=== PATIENT | male | born 1955 | race Caucasian/White ===

== ENCOUNTER 2019-09-27 14:04 | Inpatient (IN) ==
[2019-09-27] MEDS ORDERED: ONDANSETRON INJ 2 MG/ML 2 ML VIAL IV STA ×2 (14:16→16:15)
[2019-09-27] MEDS ORDERED: SODIUM CHLORIDE 0.9% 1000ML 1,000 ML IV SCH (14:30)
[2019-09-27 14:48] LABS: Basophils # (auto) 0.03 K/uL (0-0.2); Basophils % (auto) 0.3 %; Eosinophils # (auto) 0.06 K/uL (0-0.5); Eosinophils % (auto) 0.7 %; Hematocrit (blood only) 41.9 % (42-52); Hemoglobin 15.2 g/dL (14.0-18.0); Immature Granulocytes # (auto) 0.03 K/uL (0.00-0.02); Immature Granulocytes % (auto) 0.3 %; Lymphocytes # (auto) 1.32 K/uL (1.2-3.4); Lymphocytes % (auto) 14.7 %; Mean Corpuscular Hemoglobin 31.1 pg (25-34); Mean Corpuscular Hgb Conc 36.3 g/dL (32-36); Mean Corpuscular Volume 85.9 fL (80-100); Mean Platelet Volume 9.1 fL (7.4-10.4); Monocytes % (auto) 8.9 %; Neutrophils # (auto) 6.75 K/uL (1.4-6.5); Neutrophils % (auto) 75.1 %; Platelet Count 159 K/uL (130-400); RDW Coefficient of Variation 12.8 % (11.5-14.5); RDW Standard Deviation 40.1 fL (36.4-46.3); Red Blood Count 4.88 M/uL (4.7-6.1); White Blood Count 8.99 K/uL (4.8-10.8)
[2019-09-27 14:57] LABS: Appearance Urine Clear (Clear); Bilirubin Urine Negative (Negative); Blood Urine Negative (Negative); Color Urine Yellow; Glucose Urine UA 1+ (Negative); Ketones Urine 1+ (Negative); Leukocyte Esterase Urine Negative (Negative); Nitrite Urine Negative (Negative); Protein Urine Negative (Negative); Specific Gravity Urine 1.011 (1.000-1.030); Urobilinogen Urine Negative (Negative)
[2019-09-27 14:57] LABS: INR 1.1 (0.9-1.1); Prothrombin Time 11.4 Seconds (9.0-12.0)
[2019-09-27 15:03] LABS: Alanine Aminotransferase 25 U/L (12-78); Albumin Level 3.1 gm/dl (3.4-5.0); Aspartate Aminotransferase 12 U/L (15-37); BUN Creatinine Ratio 18.3 (10-20); Blood Urea Nitrogen 19 mg/dl (7-18); Calcium 9.1 mg/dl (8.5-10.1); Carbon Dioxide 25 mmol/L (21-32); Chloride 104 mmol/L (98-107); Creatinine Clr Calc Pharmacy 88.5 ml/min; Est GFR (African American) 91.5; Glucose 226 mg/dl (70-99); Lipase 97 U/L (73-393); Potassium 4.2 mmol/L (3.5-5.1); Sodium 136 mmol/L (136-145)
[2019-09-27 15:08] LABS: Albumin Globulin Ratio 0.9 (0.9-2); Alkaline Phosphatase 72 U/L (45-117); Bilirubin,Total 0.5 mg/dl (0.2-1); Globulin 3.5 gm/dl (2.5-4.0); Total Protein 6.6 gm/dl (6.4-8.2); Troponin I < 0.015 ng/ml (0-0.045)
[2019-09-27] MEDS ORDERED: IOVERSOL 100ml IV PRN (15:27)
--- NOTE | 2019-09-27 15:39 | CT Scan Report ---
CT SCAN OF THE ABDOMEN AND PELVIS WITH IV CONTRAST CLINICAL HISTORY: Epigastric abdominal pain. COMPARISON STUDY: No priors. TECHNIQUE: Following the IV administration of 89 cc of Optiray 320, CT scan of the abdomen and pelvi s is performed from the lung bases to the proximal femora. Images are reviewed in the axial, sagittal , and coronal planes. IV contrast was administered without complication. A dose lowering technique wa s utilized adhering to the principles of ALARA. CT DOSE: 809.37 mGycm FINDINGS: Lung bases: The heart is normal in size and without pericardial effusion. The lung bases are clear no ting dependent atelectasis. There is a small hiatal hernia. Liver: The contrast-enhanced liver is normal in size, contour, and attenuation. There is no intrahepa tic biliary ductal dilatation. The hepatic veins and portal veins are patent. Gallbladder: Surgically absent noting clips in the gallbladder fossa. Spleen: Normal in size and attenuation. Pancreas: The pancreas is atrophic. Numerous parenchymal calcifications suggest chronic pancreatitis. There are large stones within the main pancreatic duct (image #[id number]). Large stones are also present t he hepatic duct in the pancreatic head region seen on image #152, possibly within the accessory duct of a pancreas divisum. This causes upstream dilatation of the pancreatic duct which measures up to 9 mm in diameter. There is mild peripancreatic stranding. The remaining parenchymal tissue enhances sloan ogeneously. The splenic vein is patent. Adrenal glands: Unremarkable. Kidneys: The contrast enhanced kidneys demonstrate mild cortical atrophy and are without hydronephros is. The kidneys enhance symmetrically. Small bilateral renal cysts measure up to 1.3 cm. Abdominal vasculature: The abdominal aorta is normal in course and caliber noting mild atheroscleroti c calcification. Bowel: There are scattered colonic diverticula without CT evidence of acute diverticulitis. No bowel obstruction is seen. Fecal retention is noted in the colon. The appendix is well-visualized and norm al. Peritoneum: There is no intraperitoneal free air or abdominal ascites. There is a small fat-containin g umbilical hernia. Lymphadenopathy: None. Pelvic viscera: The prostate gland is mildly enlarged and heterogeneous noting median lobe hypertroph y. The bladder wall appears mildly thickened and trabeculated indicating chronic outlet obstruction. There is a small fat-containing right inguinal hernia. Skeletal structures: No lytic or blastic lesions are seen. IMPRESSION: 1. The pancreas is atrophic and there are numerous parenchymal calcifications. Additionally, there is mild peripancreatic inflammation. Correlate clinically and with serum lipase levels for evidence of acute on chronic pancreatitis. 2. There are large stones within the main pancreatic duct. Large stones are also seen within the panc reatic duct in the region of the pancreatic head, possibly within the accessory duct of a pancreas di visum. These ductal stones cause upstream dilatation of the main pancreatic duct which measures up to 9 mm in diameter. GI consultation is advised and ERCP may provide further information. 3. Status post cholecystectomy. 4. Additional findings as above. ACT 112: Negative or not required by law. Electronically signed by: Eric Kern M.D. 09/27/2019 3:38 PM
[2019-09-27] MEDS ORDERED: MoRPHine SULFATE 10 MG/ML CARP/VIAL IV STA (16:15)
[2019-09-27] MEDS ORDERED: MoRPHine SULFATE 2 MG/ML CARP ONE (16:28)
[2019-09-27] MEDS ORDERED: MoRPHine SULFATE 4 MG/ML 1 ML CARP\\VIAL ONE (16:28)
--- NOTE | 2019-09-27 17:20 | History & Physical Report ---
Date of Service September 27, 2019 Assessment & Plan (1) Pancreatitis: Pt is 63 y/o M with PMH recurrent pancreatitis, DM I, dyslipidemia presented to ER with c/o epigastric pain x 5 days. Denies fever/chills, N/V/D In ER afebrile, vitals stable. No leukocytosis, LFTs WNL, Lipase: 97 CT ABD/PELVIS WITH CONTRAST: 1. The pancreas is atrophic and there are numerous parenchymal calcifications. Additionally, there is mild peripancreatic inflammation. Correlate clinically and with serum lipase levels for evidence of acute on chronic pancreatitis. 2. There are large stones within the main pancreatic duct. Large stones are also seen within the pancreatic duct in the region of the pancreatic head, possibly within the accessory duct of a pancreas divisum. These ductal stones cause upstream dilatation of the main pancreatic duct which measures up to 9 mm in diameter. 3. Status post cholecystectomy. -In ER given 1L NSS, Morphine, zofran -NPO -LR @ 200ml/hr -Acetaminophen IV, Dilaudid prn pain, Zofran prn nausea -GI consult - ER physician spoke to GI - Li SCHROEDER -CBC, CMP, Liver panel, Lipase in AM (2) Diabetes type I: A1c: 7.9 in 06/2019 -Monitor BSGs -Continue Basal bolus insulin DVT Prophylaxis -SCDs Full Code as per discussion with pt Follows with Dr Argueta for routine care Pt was seen and care coordinated with Dr Higuera. See addendum History of Present Illness Chief Complaint: Abdominal pain Primary Care Provider: Live Argueta MD Pt is 63 y/o M with PMH recurrent pancreatitis, DM I, dyslipidemia presented to ER with c/o epigastric pain x 5 days. Reports epigastric pain radiates to back. Tried decreasing oral intake and then tried to slowly resume with worsening symptoms. Denies nausea or vomiting. Reports having normal BM's. Denies ETOH use. Denies fever/chills, diaphoresis, PILLAI, dizziness, syncope, vision changes, neck pain, CP, SOB, orthopnea, palpitations, cough, sore throat, choking, otalgia, rhinorrhea, paresthesias, weakness, extremity weakness, extremity edema, rashes, urinary symptoms. Allergies Allergy/AdvReac Type Severity Reaction Status Date / Time aspirin Allergy Unknown Verified 09/27/19 15:50 Home Medications Home Medications Medication Instructions Recorded Confirmed Type aspirin [Aspir-Low] 81 mg PO DAILY 09/27/19 09/27/19 History fexofenadine [Tessa Allergy] 180 mg PO DAILY PRN 09/27/19 09/27/19 History fluticasone propionate [Flonase 2 spray INTRANASAL DAILY PRN 09/27/19 09/27/19 History Allergy Relief] insulin glargine [Lantus Solostar 16 unit SUBCUT DAILY 09/27/19 09/27/19 History U-100 Insulin] insulin lispro [Humalog KwikPen 6 unit SUBCUT BIDM 09/27/19 09/27/19 History Insulin] insulin lispro [Humalog KwikPen 8 unit SUBCUT DAILY 09/27/19 09/27/19 History Insulin] Past Med/Surg History Medical History (Updated 09/27/19 @ 17:22 by Ellyn Roach PA-C) defect Diabetes type I Dyslipidemia Pancreatitis Surgical History (Updated 09/27/19 @ 17:22 by Ellyn Roach PA-C) History of cholecystectomy History of inguinal hernia repair Family History (Updated 09/27/19 @ 17:23 by Ellyn Roach PA-C) Father Cancer Social History (Updated 09/27/19 @ 17:23 by Ellyn Roach PA-C) Preferred Language: [place] Communication Ability: Effective Product Safety Technician Required: No Beliefs That Will Affect Care: None Current Living Situation: Spouse Other Information That Helps Us Care for You: No Feels Safe at Home: Yes Safety Concerns: Feels Safe At This Time Smoking Status: Never smoker Do You Dip or Chew Tobacco: No ; Second Hand Exposure: No ; Tobacco Cessation Education Requested by Patient: No Hx Alcohol Use: No Hx Substance Use: No Review of Systems Review of Systems: All systems reviewed & are unremarkable except as noted in HPI & below Physical Exam Physical Exam: General: no acute distress, WDWN Head: normocephalic, atraumatic Eyes: PERRL, EOM's intact, conjunctiva non-injected, anicteric ENT: normal inspection external ears, nose, mucous membranes moist Neck: supple, trachea midline Lungs: clear, no respiratory distress, no wheezing/rhonchi/rales CV: RRR, no murmur, no pretibial edema Abd: normal BS, soft, +tenderness to palpation epigastric without guarding Ext: no cyanosis, no calf tenderness Neuro: A&O x 3, no focal deficits noted, normal affect Skin: warm, dry Results & Data Vital Signs (Past 12 Hours) Vital Signs Temp Pulse Resp BP Pulse Ox 09/27/19 17:00 61 18 147/83 H 98 09/27/19 16:23 51 L 18 149/84 H 98 09/27/19 14:30 51 L 12 156/77 H 96 09/27/19 14:18 99 09/27/19 14:15 54 L 22 174/90 H 100 09/27/19 14:06 36.4 C L 63 20 176/94 H 99 Laboratory Results Short CBC 09/27/19 Range/Units 14:36 WBC 8.99 (4.8-10.8) K/uL Hgb 15.2 (14.0-18.0) g/dL Hct 41.9 L (42-52) % Plt Count 159 (130-400) K/uL BMP 09/27/19 14:36 Sodium 136 Potassium 4.2 Chloride 104 Carbon Dioxide 25 BUN 19 H Creatinine 1.02 Glucose 226 H Calcium 9.1 Cardiac Enzymes 09/27/19 Range/Units 14:36 Troponin I < 0.015 (0-0.045) ng/ml Liver Function 09/27/19 Range/Units 14:36 Total Bilirubin 0.5 (0.2-1) mg/dl AST 12 L (15-37) U/L ALT 25 (12-78) U/L Alkaline Phosphatase 72 (45-117) U/L Albumin 3.1 L (3.4-5.0) gm/dl Urine 09/27/19 Range/Units 14:45 Urine Color Yellow Urine Appearance Clear (Clear) Urine pH 5.0 (4.5-7.5) Ur Specific [place] 1.011 (1.000-1.030) Urine Protein Negative (Negative) Urine Glucose (UA) 1+ H (Negative) Diagnostic Findings CT ABD/PELVIS WITH CONTRAST: IMPRESSION: 1. The pancreas is atrophic and there are numerous parenchymal calcifications. Additionally, there is mild peripancreatic inflammation. Correlate clinically and with serum lipase levels for evidence of acute on chronic pancreatitis. 2. There are large stones within the main pancreatic duct. Large stones are also seen within the pancreatic duct in the region of the pancreatic head, possibly within the accessory duct of a pancreas divisum. These ductal stones cause upstream dilatation of the main pancreatic duct which measures up to 9 mm in diameter. GI consultation is advised and ERCP may provide further information. 3. Status post cholecystectomy. 4. Additional findings as above. Code Status & VTE Plan VTE Prophylaxis Plan VTE Prophylaxis will be ordered: Yes Supervising Physician Co-Signing Physician Notes I, Dr. Denzel Higuera, have seen and examine the patient with physician certified ophthalmic surgical assistant and agree with the assessment and plan On exam In General: no acute distress Lungs: clear to auscultation bilaterally, no wheezing, no stridor Heart: regular rate Abdomen: soft, bowel sounds are audible, patient reports that abdomen pain is worse under the xiphoid process, no acute tenderness to palpation under the xiphoid process Extremities/Neuro: moves all extremities Acute Biliary Pancreatitis Diabetes Type I -CT abdomen admission (1. The pancreas is atrophic and there are numerous parenchymal calcifications. Additionally, there is mild peripancreatic inflammation. Correlate clinically and with serum lipase levels for evidence of acute on chronic pancreatitis. 2. There are large stones within the main pancreatic duct. Large stones are also seen within the pancreatic duct in the region of the pancreatic head, possibly within the accessory duct of a pancreas divisum. These ductal stones cause upstream dilatation of the main pancreatic duct which measures up to 9 mm in diameter. GI consultation is advised and ERCP may provide further information. 3. Status post cholecystectomy.) -have requested GI consult to look into the role of performing ERCP during this hospital stay -lactated ringer's IV fluids, prn pain medications, no nausea or vomiting curr ently but will have prn anti-emetics -insulin based on blood glucose, he will still need some basal coverage even though he is NPO because of Type I diabetes. Lantus is set on a scale but should be able to give some basal coverage My hospitalist colleague will be following the starting on 09/28/2019 (1) Pancreatitis Acute pancreatitis complication: unspecified Chronicity: acute Pancreatitis type: unspecified pancreatitis type Qualified Code(s): K85.90 - Acute pancreatitis without necrosis or infection, unspecified
[2019-09-27] MEDS ORDERED: GLUCAGON FOR INJ 1 MG VIAL SQ PRN (17:52)
[2019-09-27] MEDS ORDERED: DEXTROSE 50% 50 ML SYRINGE IV PRN (17:52)
[2019-09-27] MEDS ORDERED: ONDANSETRON INJ 2 MG/ML 2 ML VIAL IV PRN (17:52)
[2019-09-27] MEDS ORDERED: GLUCOSE 10 TABS/TUBE PO PRN (17:52)
[2019-09-27] MEDS ORDERED: GLUCOSE 40% GEL 15 GM TUBE PO PRN (17:52)
[2019-09-27] MEDS ORDERED: FLUTICASONE PROPIONATE NA SPR 16 GM BTL NAE PRN (17:52)
[2019-09-27] MEDS ORDERED: CARBOHYDRATES FOR HYPOGLYCEMIA PO PRN (17:52)
[2019-09-27] MEDS: LACTATED RINGER'S 1,000 ML IV SCH ×2 (18:20→23:17)
[2019-09-27] MEDS ORDERED: Nursing to Pharmacy Communication ONE (19:48)
--- NOTE | 2019-09-27 20:39 | Emergency Department Note ---
Entered by Roberto Taveras acting as a scribe for History of Present Illness General Chief complaint: Abdominal Pain Stated complaint: ABD PAIN Source: patient Limitations: no limitations History of Present Illness Onset (ago): day(s) 5 Location: abdomen Radiation: back Maximum Pain Intensity: 3 Quality: + burning and + stabbing Relieved By: + other (not eating) Exacerbated By: + eating Associated symptoms: + denies other symptoms (burning with urination); no nausea/vomiting Treatments prior to arrival: other (hydrocodone) The patient is a 63 year old male who presents to the Emergency Room with complaints of stabbing and burning abdominal pain starting 5 days ago. 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 He states he has a history of pancreatitis and notes he has had it about 20 times before. He states the last time he had pancreatitis was 7 years ago. He states his pain is in the middle of his abdomen and radiates to his back. He notes his pain feels exactly like his previous pancreatitis attacks. He notes he did not eat much Wednesday, Wednesday, and Wednesday, and notes his pain got better. He states he started to eat again yesterday, Wednesday, and states his pain got worse. He states he took hydrocodone before coming to the ED. The patient denies having nausea, vomiting, and burning with urination. He states he does not drink alcohol. He states he does not take any new medications. The patient denies smoking and having a history of hypertension, high cholesterol, and heart problems. He states he had a cholecystectomy. He denies having previous heart attacks. He states he follows up with Chrissie LOERA, but states he has not seen anyone in a while. Home Medications Home Medications Medication Instructions Recorded Confirmed Type aspirin [Aspir-Low] 81 mg PO DAILY 09/27/19 09/27/19 History fexofenadine [Tessa Allergy] 180 mg PO DAILY PRN 09/27/19 09/27/19 History fluticasone propionate [Flonase 2 spray INTRANASAL DAILY PRN 09/27/19 09/27/19 History Allergy Relief] insulin glargine [Lantus Solostar 16 unit SUBCUT DAILY 09/27/19 09/27/19 History U-100 Insulin] insulin lispro [Humalog KwikPen 6 unit SUBCUT BIDM 09/27/19 09/27/19 History Insulin] insulin lispro [Humalog KwikPen 8 unit SUBCUT DAILY 09/27/19 09/27/19 History Insulin] Allergies Allergy/AdvReac Type Severity Reaction Status Date / Time aspirin Allergy Unknown Verified 09/27/19 15:50 Past Med/Surg History Medical History (Updated 09/27/19 @ 17:22 by Ellyn Roach PA-C) defect Diabetes type I Dyslipidemia Pancreatitis Surgical History (Updated 09/27/19 @ 17:22 by Ellyn Roach PA-C) History of cholecystectomy History of inguinal hernia repair Family History (Updated 09/27/19 @ 17:23 by Ellyn Roach PA-C) Father Cancer Social History (Updated 09/27/19 @ 17:23 by Ellyn Roach PA-C) Preferred Language: Belizean Communication Ability: Effective Impregnation Operator Required: No Beliefs That Will Affect Care: None Current Living Situation: Spouse Other Information That Helps Us Care for You: No Feels Safe at Home: Yes Safety Concerns: Feels Safe At This Time Smoking Status: Never smoker Do You Dip or Chew Tobacco: No ; Second Hand Exposure: No ; Tobacco Cessation Education Requested by Patient: No Hx Alcohol Use: No Hx Substance Use: No Review of Systems See HPI for pertinent positives & negatives. and A total of 10 systems reviewed and were otherwise negative Physical Exam Vital Signs Vital Signs - 24 hr 09/27/19 14:06 09/27/19 14:15 09/27/19 14:18 Temperature 36.4 C L Temperature Source Oral Pulse Rate 63 54 L Pulse Rate from SpO2 Sensor 54 L Respiratory Rate 20 22 Respiratory Effort / Characteristics Non-Labored Spontaneous Respiratory Depth Normal Blood Pressure 176/94 H 174/90 H Blood Pressure Mean 121 120 Blood Pressure Position Sitting Pulse Oximetry 99 100 99 Oxygen Delivery Method Room Air Room Air Sepsis Recent Fever Within 48 Hours No Sepsis Action Taken by Nursing No Action Required 09/27/19 14:30 09/27/19 16:23 Temperature Temperature Source Pulse Rate 51 L 51 L Pulse Rate from SpO2 Sensor 51 L 50 L Respiratory Rate 12 18 Respiratory Effort / Characteristics Respiratory Depth Blood Pressure 156/77 H 149/84 H Blood Pressure Mean 101 115 Blood Pressure Position Pulse Oximetry 96 98 Oxygen Delivery Method Room Air Sepsis Recent Fever Within 48 Hours Sepsis Action Taken by Nursing GENERAL: Sitting up in bed. Holding epigastric region. Wearing hospital gown. Non-toxic. EYE EXAM: normal conjunctiva OROPHARYNX: no exudate, no erythema, lips, buccal mucosa, and tongue normal and mucous membranes are moist NECK: supple, no nuchal rigidity, no adenopathy, non-tender LUNGS: Clear to auscultation. Normal chest wall mechanics HEART: no murmurs, S1 normal and S2 normal ABDOMEN: abdomen soft, normo-active bowel sounds, no masses, no rebound or guarding. Tender to palpation in epigastric region. BACK: Back is symmetrical on inspection and there is no deformity, no midline tenderness, no CVA tenderness. SKIN: no rashes and no bruising UPPER EXTREMITIES: upper extremities are grossly normal. LOWER EXTREMITIES: No pitting edema. NEURO EXAM: Normal sensorium, cranial nerves II-XII grossly intact, normal speech, no gross weakness of arms, no gross weakness of legs. Course Course ED COURSE: Vital signs were reviewed and showed hypertensive situationally. The patients medical record was reviewed. The above diagnostic studies were performed and reviewed. ED treatments and interventions as stated above. 1411: The patient was evaluated in room C6. A complete history and physical examination was performed. 1624: I spoke with ALEXANDRE Rojas, about the patient's case. 1629: Upon reevaluation, the patient would like to stay. .I discussed my findings with the patient and he understands and agrees with the treatment plan. 1634: I discussed the patient's case with Ellyn Worley PA-C. Dr. Higuera, [facility] Hospitalist, will evaluate the patient for further management Based on the patients age, coexisting illnesses, exam and lab findings the decision to treat as an inpatient was made. The patient remained stable while under my care. The patient will be evaluated for further management. Administered Medications Lactated Ringer's (Lr) 1,000 mls @ 200 mls/hr IV .Q5H PARTH Stop: 10/27/19 17:51 Last Admin: 09/27/19 18:20 Dose: 200 mls/hr Documented by: [id number] Discontinued Medications Sodium Chloride (Nss 1000ml) 1,000 mls @ 999 mls/hr IV .Q1H1M PARTH Stop: 09/27/19 15:30 Last Infusion: 09/27/19 16:19 Dose: 0 mls/hr Documented by: [id number] Admin: 09/27/19 14:47 Dose: 999 mls/hr Documented by: [id number] Ioversol (Optiray 320 100ml) 89 ml IV ONCE PRN PRN Reason: Interaction Checking Stop: 10/01/19 15:26 Last Admin: 09/27/19 15:27 Dose: 89 ml Documented by: [id number] Morphine Sulfate (Morphine Sulfate) 6 mg IV NOW STA Stop: 09/27/19 16:16 Last Admin: 09/27/19 16:30 Dose: Not Given Documented by: [id number] Morphine Sulfate (Morphine Sulfate) Confirm Administered Dose 4 mg .ROUTE .STK-MED ONE Stop: 09/27/19 16:29 Last Admin: 09/27/19 16:30 Dose: 4 mg Documented by: [id number] Morphine Sulfate (Morphine Sulfate) Confirm Administered Dose 2 mg .ROUTE .STK- MED ONE Stop: 09/27/19 16:29 Last Admin: 09/27/19 16:30 Dose: 2 mg Documented by: [id number] Ondansetron HCl (Zofran) 4 mg IV NOW STA Stop: 09/27/19 14:17 Last Admin: 09/27/19 14:45 Dose: Not Given Documented by: [id number] Ondansetron HCl (Zofran) 4 mg IV NOW STA Stop: 09/27/19 16:16 Last Admin: 09/27/19 16:30 Dose: 4 mg Documented by: [id number] Medical Decision Making Differential Diagnosis Differential diagnoses includes but is not limited to gastritis, peptic ulcer disease, GERD, gallbladder disease, pancreatitis, small bowel obstruction, acute coronary syndrome, pericarditis, ischemic bowel, irritable bowel disease, irritable bowel syndrome, appendicitis, diverticulitis, malignancy, hernia, urinary tract infection, torsion, perforation, trauma, infectious. Medical Records Attestation: I reviewed the patient's medical records. Home Medications Current Medication List: was personally reviewed by me Laboratory Data Attestation: I reviewed the patient's lab results. Result diagrams: 09/27/19 14:36 09/27/19 14:36 Lab Results 09/27/19 09/27/19 09/27/19 Range/Units 14:36 14:36 14:36 WBC 8.99 (4.8-10.8) K/uL RBC 4.88 (4.7-6.1) M/uL Hgb 15.2 (14.0-18.0) g/dL Hct 41.9 L (42-52) % MCV 85.9 (80-100) fL MCH 31.1 (25-34) pg MCHC 36.3 H (32-36) g/dL RDW Std Deviation 40.1 (36.4-46.3) fL RDW Coeff of Dawn 12.8 (11.5-14.5) % Plt Count 159 (130-400) K/uL MPV 9.1 (7.4-10.4) fL Immature Gran % (Auto) 0.3 % Neut % (Auto) 75.1 % Lymph % (Auto) 14.7 % Ray % (Auto) 8.9 % Eos % (Auto) 0.7 % Baso % (Auto) 0.3 % Immature Gran # (Auto) 0.03 H (0.00-0.02) K/uL Neut # (Auto) 6.75 H (1.4-6.5) K/uL Lymph # (Auto) 1.32 (1.2-3.4) K/uL Ray # (Auto) 0.80 H (0.11-0.59) K/uL Eos # (Auto) 0.06 (0-0.5) K/uL Baso # (Auto) 0.03 (0-0.2) K/uL PT 11.4 (9.0-12.0) Seconds INR 1.1 (0.9-1.1) Sodium 136 (136-145) mmol/L Potassium 4.2 (3.5-5.1) mmol/L Chloride 104 (98-107) mmol/L Carbon Dioxide 25 (21-32) mmol/L Anion Gap 7.0 (3-11) BUN 19 H (7-18) mg/dl Creatinine 1.02 (0.6-1.4) mg/dl Est Cr Clr Drug Dosing 88.5 ml/min Est GFR ( Amer) 91.5 Est GFR (Non-Af Amer) 79.0 BUN/Creatinine Ratio 18.3 (10-20) Glucose 226 H (70-99) mg/dl Calcium 9.1 (8.5-10.1) mg/dl Total Bilirubin 0.5 (0.2-1) mg/dl AST 12 L (15-37) U/L ALT 25 (12-78) U/L Alkaline Phosphatase 72 (45-117) U/L Troponin I < 0.015 (0-0.045) ng/ml Total Protein 6.6 (6.4-8.2) gm/dl Albumin 3.1 L (3.4-5.0) gm/dl Globulin 3.5 (2.5-4.0) gm/dl Albumin/Globulin Ratio 0.9 (0.9-2) Lipase 97 (73-393) U/L Urine Color Urine Appearance (Clear) Urine pH (4.5-7.5) Ur Specific [place] (1.000-1.030) Urine Protein (Negative) Urine Glucose (UA) (Negative) Urine Ketones (Negative) Urine Blood (Negative) Urine Nitrite (Negative) Urine Bilirubin (Negative) Urine Urobilinogen (Negative) Ur Leukocyte Esterase (Negative) 09/27/19 Range/Units 14:45 WBC (4.8-10.8) K/uL RBC (4.7-6.1) M/uL Hgb (14.0-18.0) g/dL Hct (42-52) % MCV (80-100) fL MCH (25-34) pg MCHC (32-36) g/dL RDW Std Deviation (36.4-46.3) fL RDW Coeff of Dawn (11.5-14.5) % Plt Count (130-400) K/uL MPV (7.4-10.4) fL Immature Gran % (Auto) % Neut % (Auto) % Lymph % (Auto) % Ray % (Auto) % Eos % (Auto) % Baso % (Auto) % Immature Gran # (Auto) (0.00-0.02) K/uL Neut # (Auto) (1.4-6.5) K/uL Lymph # (Auto) (1.2-3.4) K/uL Ray # (Auto) (0.11-0.59) K/uL Eos # (Auto) (0-0.5) K/uL Baso # (Auto) (0-0.2) K/uL PT (9.0-12.0) Seconds INR (0.9-1.1) Sodium (136-145) mmol/L Potassium (3.5-5.1) mmol/L Chloride (98-107) mmol/L Carbon Dioxide (21-32) mmol/L Anion Gap (3-11) BUN (7-18) mg/dl Creatinine (0.6-1.4) mg/dl Est Cr Clr Drug Dosing ml/min Est GFR ( Amer) Est GFR (Non-Af Amer) BUN/Creatinine Ratio (10-20) Glucose (70-99) mg/dl Calcium (8.5-10.1) mg/dl Total Bilirubin (0.2-1) mg/dl AST (15-37) U/L ALT (12-78) U/L Alkaline Phosphatase (45-117) U/L Troponin I (0-0.045) ng/ml Total Protein (6.4-8.2) gm/dl Albumin (3.4-5.0) gm/dl Globulin (2.5-4.0) gm/dl Albumin/Globulin Ratio (0.9-2) Lipase (73-393) U/L Urine Color Yellow Urine Appearance Clear (Clear) Urine pH 5.0 (4.5-7.5) Ur Specific [place] 1.011 (1.000-1.030) Urine Protein Negative (Negative) Urine Glucose (UA) 1+ H (Negative) Urine Ketones 1+ H (Negative) Urine Blood Negative (Negative) Urine Nitrite Negative (Negative) Urine Bilirubin Negative (Negative) Urine Urobilinogen Negative (Negative) Ur Leukocyte Esterase Negative (Negative) Imaging Data Radiologist's Impression: Radiology results as stated below per my review and the radiologist's interpretation: CT SCAN OF THE ABDOMEN AND PELVIS WITH IV CONTRAST CLINICAL HISTORY: Epigastric abdominal pain. COMPARISON STUDY: No priors. TECHNIQUE: Following the IV administration of 89 cc of Optiray 320, CT scan of the abdomen and pelvis is performed from the lung bases to the proximal femora. Images are reviewed in the axial, sagittal, and coronal planes. IV contrast was administered without complication. A dose lowering technique was utilized adhering to the principles of ALARA. CT DOSE: 809.37 mGycm FINDINGS: Lung bases: The heart is normal in size and without pericardial effusion. The lung bases are clear noting dependent atelectasis. There is a small hiatal hernia. Liver: The contrast-enhanced liver is normal in size, contour, and attenuation. There is no intrahepatic biliary ductal dilatation. The hepatic veins and portal veins are patent. Gallbladder: Surgically absent noting clips in the gallbladder fossa. Spleen: Normal in size and attenuation. Pancreas: The pancreas is atrophic. Numerous parenchymal calcifications suggest chronic pancreatitis. There are large stones within the main pancreatic duct (image #139). Large stones are also present the hepatic duct in the pancreatic head region seen on image #152, possibly within the accessory duct of a pancreas divisum. This causes upstream dilatation of the pancreatic duct which measures up to 9 mm in diameter. There is mild peripancreatic stranding. The remaining parenchymal tissue enhances homogeneously. The splenic vein is patent. Adrenal glands: Unremarkable. Kidneys: The contrast enhanced kidneys demonstrate mild cortical atrophy and are without hydronephrosis. The kidneys enhance symmetrically. Small bilateral renal cysts measure up to 1.3 cm. Abdominal vasculature: The abdominal aorta is normal in course and caliber noting mild atherosclerotic calcification. Bowel: There are scattered colonic diverticula without CT evidence of acute diverticulitis. No bowel obstruction is seen. Fecal retention is noted in the colon. The appendix is well-visualized and normal. Peritoneum: There is no intraperitoneal free air or abdominal ascites. There is a small fat-containing umbilical hernia. Lymphadenopathy: None. Pelvic viscera: The prostate gland is mildly enlarged and heterogeneous noting median lobe hypertrophy. The bladder wall appears mildly thickened and trabeculated indicating chronic outlet obstruction. There is a small fat- containing right inguinal hernia. Skeletal structures: No lytic or blastic lesions are seen. IMPRESSION: 1. The pancreas is atrophic and there are numerous parenchymal calcifications. Additionally, there is mild peripancreatic inflammation. Correlate clinically and with serum lipase levels for evidence of acute on chronic pancreatitis. 2. There are large stones within the main pancreatic duct. Large stones are also seen within the pancreatic duct in the region of the pancreatic head, possibly within the accessory duct of a pancreas divisum. These ductal stones cause upstream dilatation of the main pancreatic duct which measures up to 9 mm in diameter. GI consultation is advised and ERCP may provide further information. 3. Status post cholecystectomy. 4. Additional findings as above. ACT 112: Negative or not required by law. Electronically signed by: Eric Kern M.D. 09/27/2019 3:38 PM ECG Data Attestation: I personally reviewed and interpreted this ECG as follows: Indication: + abdominal pain Rate (beats per minute): 58 ECG Intervals/blocks: + Normal QT-c ECG [place]: + Left axis deviation ECG Findings: + Other (poor baseline inferiorly); no PVCs MDM Narrative Patient is a [id number] male who presents the ER for epigastric abdominal pain radiating through to the back. He notes this feels like his previous bouts of pancreatitis. Symptoms have been present since Wednesday and improved as he placed himself on n.p.o. restriction and and try to advance his diet on Wednesday gradually worsened. Labs show no significant leukocytosis or anemia. INR was unremarkable. BMP along with LFTs bilirubin and troponin was negative. Lipase was normal. UA did suggest dehydration. Patient was given IV fluids IV Zofran and IV narcotics. CT abdomen pelvis shows pancreatitis with dilation of pancreatic duct. Discussed with GI. Updated patient at bedside patient was admitted for further work-up. Impression & Plan Pancreatitis, Abdominal pain, Nausea Discharge Plan Visit Data *Final* Discharge Date/Time: 09/27/19 17:32 Chief Complaint: Abdominal Pain Stated Complaint: ABD PAIN ED Provider: Mukesh Tijerina Discharge Problem: Pancreatitis, Abdominal pain, Nausea Patient Disposition: Admitted As Inpatient Discharge Instructions Interventions: ED Discharge Assessment Last Done: 09/27/19 17:32 Discharge Problem: Pancreatitis Qualifiers: Chronicity: acute Pancreatitis type: unspecified pancreatitis type Acute pancreatitis complication: unspecified Qualified Code(s): K85.90 - Acute pancreatitis without necrosis or infection, unspecified Abdominal pain Qualifiers: Abdominal location: unspecified location Qualified Code(s): R10.9 - Unspecified abdominal pain The scribe's documentation has been prepared under my direction and personally reviewed by me in its entirety. I confirm that the note above accurately reflects all work, treatment, procedures, and medical decision making performed by me.
[2019-09-27] MEDS ORDERED: INSULIN GLARGINE SOLOSTAR 100 UNITS/ML 3 ML PEN SC SCH (21:00)
[2019-09-27] MEDS ORDERED: INSULIN ASPART 100 UNITS/ML 3 ML PEN SC SCH (21:00)
[2019-09-27] MEDS: HYDROmorphone INJ 0.5 MG/0.5 ML SYR IV PRN (22:15)
[2019-09-28] MEDS ORDERED: INSULIN ASPART 100 UNITS/ML 3 ML PEN SC SCH
[2019-09-28] MEDS: INSULIN ASPART 100 UNITS/ML 3 ML PEN SC SCH ×5 (00:01→20:32)
[2019-09-28] MEDS: LACTATED RINGER'S 1,000 ML IV SCH ×5 (03:58→23:41)
[2019-09-28] MEDS: ACETAMINOPHEN 1,000 MG/100 ML VIAL IV PRN (05:37)
[2019-09-28 06:56] LABS: Hematocrit (blood only) 40.1 % (42-52); Hemoglobin 14.2 g/dL (14.0-18.0); Mean Corpuscular Hemoglobin 30.8 pg (25-34); Mean Corpuscular Hgb Conc 35.4 g/dL (32-36); Mean Platelet Volume 9.1 fL (7.4-10.4); Platelet Count 143 K/uL (130-400); RDW Coefficient of Variation 12.9 % (11.5-14.5); RDW Standard Deviation 41.1 fL (36.4-46.3); Red Blood Count 4.61 M/uL (4.7-6.1); White Blood Count 8.03 K/uL (4.8-10.8)
[2019-09-28 07:26] LABS: Albumin Level 2.6 gm/dl (3.4-5.0); BUN Creatinine Ratio 13.2 (10-20); Bilirubin Direct 0.1 mg/dl (0-0.2); Calcium 8.6 mg/dl (8.5-10.1); Creatinine Clr Calc Pharmacy 91.2 ml/min; Est GFR (African American) 94.9; Est GFR (Non-African American) 81.9
[2019-09-28 07:28] LABS: Albumin Globulin Ratio 0.8 (0.9-2); Bilirubin,Total 0.9 mg/dl (0.2-1); Globulin 3.2 gm/dl (2.5-4.0); Total Protein 5.8 gm/dl (6.4-8.2)
[2019-09-28] MEDS ORDERED: PHARMACY GLYCEMIC MGMT CONSULT PRN (08:47)
[2019-09-28] MEDS ORDERED: INSULIN GLARGINE SOLOSTAR 100 UNITS/ML 3 ML PEN SC SCH (09:00)
--- NOTE | 2019-09-28 09:15 | Gastrointestinal Consultation ---
Date of Consultation September 28, 2019 Assessment & Plan (1) Pancreatitis: Acute on chronic pancreatitis. No obvious etiology (no alcohol, no hx of prior increased alcohol, not a smoker, no new medications). IV hydration. Begin po clear liquids. Tolerated for lunch, will advance to low fat regular consistency and if able to tolerate then may be discharged later today. Plan for OP MRCP then dependent on those results, size of stones and ducts, EUS/ERCP may be arranged. Present on Admission?: Yes Supervising Physician Co-Signing Physician Notes Attending attestation I have seen, examined this patient, and agree with the findings and above by our mid-level provider Kaileybrie Rosa, with the following additions, Recurrent Pancreatitis from suspected Pancreas divisum but also with PD stones. Pain has resolved, MRCP would be helpful to attempt to guage size of stones and to exclude possibility of needing ESWL. No complications of pancreatitis Will need outpt f/u for consideration of minor sphincterotomy History of Present Illness Reason for Consultation: Pancreatitis Requesting Physician: Kwesi Roach PA-C Attending Physician: Adilson Eckert MD History of Present Illness Mr. Rigoberto Bragg is a 63 yr old male pt of Dr. Argueta with a hx of DM-1, hyperlipidemia, recurrent pancreatitis S/P distant cholecystectomy who presented to the ED yesterday for upper abdomen pain. GI is consulted for pancreatitis. The pt is awake, alert, oriented, and has a low grade pain though he has been NPO since arrival. He tells me that he initially experienced acute pancreatitis since time in the late and that he was managed by Dr. Angelo (previously with [facility]) and that he has not had an episode since prior to 2000 which he recalls is when he was dx'ed with DM-1. He describes having undergone ERCP with pancreatic stenting in the at [facility]. Symptoms began on Wednesday evening and persisted since then. He recognized the symptoms: epigastric pain radiating "straight through" to the mid back, with nausea, no vomiting. He limited himself to clear liquids for a few days, then tried eating on Wednesday with worsened post prandial pain. Because his symptoms were not improving, he presented to the ED yesterday. On arrival, there are large stones within the main pancreatic duct and in the head near possible pancreas divisum with upstream dilation to 9mm. Lipase is 61 and LFTs are normal. No leukocytosis. Allergies Allergy/AdvReac Type Severity Reaction Status Date / Time aspirin Allergy Unknown Verified 09/27/19 15:50 Home Medications Home Medications Medication Instructions Recorded Confirmed Type aspirin [Aspir-Low] 81 mg PO DAILY 09/27/19 09/27/19 History fexofenadine [Tessa Allergy] 180 mg PO DAILY PRN 09/27/19 09/27/19 History fluticasone propionate [Flonase 2 spray INTRANASAL DAILY PRN 09/27/19 09/27/19 History Allergy Relief] insulin glargine [Lantus Solostar 16 unit SUBCUT DAILY 09/27/19 09/27/19 History U-100 Insulin] insulin lispro [Humalog KwikPen 6 unit SUBCUT BIDM 09/27/19 09/27/19 History Insulin] insulin lispro [Humalog KwikPen 8 unit SUBCUT DAILY 09/27/19 09/27/19 History Insulin] Patient History Medical History (Updated 09/27/19 @ 17:22 by Ellyn Roach PA-C) defect Diabetes type I Dyslipidemia Pancreatitis Surgical History (Updated 09/27/19 @ 17:22 by Ellyn Roach PA-C) History of cholecystectomy History of inguinal hernia repair Family History (Updated 09/27/19 @ 17:23 by Ellyn Roach PA-C) Father Cancer Social History (Updated 09/27/19 @ 17:23 by Ellyn Roach PA-C) Preferred Language: Nigerian Communication Ability: Effective Casino Floor Runner Required: No Beliefs That Will Affect Care: None Current Living Situation: Spouse Other Information That Helps Us Care for You: No Feels Safe at Home: Yes Safety Concerns: Feels Safe At This Time Smoking Status: Never smoker Do You Dip or Chew Tobacco: No ; Second Hand Exposure: No ; Tobacco Cessation Education Requested by Patient: No Hx Alcohol Use: No Hx Substance Use: No Review of Systems Review of Systems: ROS: Gen: Denies weakness, fevers, weight loss Eyes: No eye redness, or pain, no recent vision changes Resp: No SOB, no cough Cardio: No palpitations/irregular beats, no chest pain GI: See HPI, otherwise (-) : Denies pain on urination Skin: No jaundice, itching or new rashes Physical Exam Constitutional: WD/WN, vitals as above Eyes: PERRL, conjunctivae normal, anicteric sclerae ENMT: external ear and nose normal, oropharynx normal Neck: trachea midline, no thyromegaly Respiratory: normal respiratory effort, lungs clear to auscultation Cardiovascular: RRR, no murmur, no edema Gastrointestinal (Abdomen): Percussion/Palpation: + abdomen tender (mild, epigastric) and abdomen soft no masses, not distended Skin: no rashes, warm and dry no jaundice Neurologic: PERRL, EOMI, accommodation nl, no face palsy, no dysarthria Psychiatric: A+Ox3, euthymic affect Lymphatic: no cervical or axillary lymphadenopathy Results & Data Vital Signs (Past 12 Hours) Vital Signs Temp Pulse Resp BP Pulse Ox 09/28/19 06:51 36.9 C 57 L 16 105/50 L 95 09/27/19 23:12 37.2 C 62 18 111/61 96 Laboratory Results WBC 8, Hb 14, Hcy 40, platelets 143, Na 137, K 4.0, BUN 13, Cr 0.9, Glucose [address] abd/pelvis with IV contrast 09/27: 1. The pancreas is atrophic and there are numerous parenchymal calcifications. Additionally, there is mild peripancreatic inflammation. Correlate clinically and with serum lipase levels for evidence of acute on chronic pancreatitis. 2. There are large stones within the main pancreatic duct. Large stones are also seen within the pancreatic duct in the region of the pancreatic head, possibly within the accessory duct of a pancreas divisum. These ductal stones cause upstream dilatation of the main pancreatic duct which measures up to 9 mm in diameter. GI consultation is advised and ERCP may provide further information. 3. Status post cholecystectomy. 4. Additional findings as above. (1) Pancreatitis Acute pancreatitis complication: unspecified Chronicity: acute Pancreatitis type: unspecified pancreatitis type Qualified Code(s): K85.90 - Acute pancreatitis without necrosis or infection, unspecified
[2019-09-28] MEDS ORDERED: INSULIN GLARGINE SOLOSTAR 100 UNITS/ML 3 ML PEN SC STA ×2 (09:46→12:48)
[2019-09-28] MEDS: HYDROmorphone INJ 0.5 MG/0.5 ML SYR IV PRN ×2 (11:45→17:49)
--- NOTE | 2019-09-28 13:55 | Pharmacy Report ---
Glycemic Control Consultation - Date of Service September 28, 2019 - Scope Scope: Glycemic Pharmacist consulted by Dr Eckert on 09/28 for glycemic control and to write orders per [facility] ED inpatient glycemic control protocol - Objective Weight: 92.8 kg Accuchecks BSG (last 24hrs): 09/27/19 09/28/19 14:36 06:36 Glucose 226 H 159 H Laboratory Data (last 24hrs): 09/27/19 09/28/19 14:36 06:36 Potassium 4.2 4.0 Carbon Dioxide 25 25 Anion Gap 7.0 6.0 Creatinine 1.02 0.99 Est Cr Clr Drug Dosing 88.5 91.2 - Recent Pertinent Medications Outpatient Anti-diabetic Regimen: * Lantus 16 units Qam, Humalog 6 units BIDM with breakfast and lunch, 8 units with dinner * A1c = 7.9 % 06/2019 Risk Factors for Insulin Resistance: * Diet: T1DM - Assessment & Plan Assessment & Plan: ASSESSMENT: * 63 year old male with PMHx significant for hld, type 1 diabetes, recurrent pancreatitis. Admitted to hospital with possible pancreatitis. * Patient had been NPO this morning for GI workup - provider had ordered 10 units of Lantus * Patient follows [facility] clinic in [place] for diabetes. Notes state type 1 diabetic. Patient reports diagnosed however later in life in his 40s. Unclear if type 1 vs. 2 mix diabetic. * Diet resumed at lunch time - did order additional 6 units of basal insulin to make up full home basal dose and also started novolog PLAN FOR INPATIENT GLYCEMIC CONTROL: * Basal insulin * Lantus 10 this am + 6 units = home dose of 16 units * Bolus insulin * NovoLog per scale ACHS or Q6hrs while NPO * Goal Range: Low 100 mg/dL - High 140 mg/dL * Correction Factor: 30 mg/dL/unit * Nutritional / Prandial insulin per carb ratio of 1 unit per 10 grams CHO consumed * Please note that the plan above was derived based on current level of insulin resistance and hospital stress. These recommendations are appropriate for inpatient admission only. Plan of care upon discharge will need to be reassessed to avoid potential outpatient hypo/hyperglycemia. Thank you.
--- NOTE | 2019-09-28 14:06 | Hospitalist Progress Note ---
Date of Service September 28, 2019 Assessment & Plan (1) Pancreatitis: Pt is 63 y/o M with PMH recurrent pancreatitis, DM I, dyslipidemia presented to ER with c/o epigastric pain x 5 days. Denies fever/chills, N/V/D Clinically much better Diet advance to clear liquids, tolerated well so far GI consulted-planning outpatient MRCP Continue to monitor in the hospital (2) Diabetes type I: A1c: 7.9 in 06/2019 -Monitor BSGs -Continue Basal bolus insulin DVT Prophylaxis -SCDs Full Code as per discussion with pt Follows with Dr Argueta for routine care Subjective Delayed entry date of service noted above Follow-up for acute pancreatitis Seen resting in bed, comfortable, not in distress States abdominal pain has improved compared to admission Tolerating clear liquid diet No fevers or chills, shortness of breath, chest pain No other symptoms Review of Systems Review of Systems: All systems reviewed & are unremarkable except as noted in HPI & below Physical Exam Physical Exam: General- oriented x 3, not in distress, speaks in sentences with no effort or accessory muscle use Head- atraumatic Eyes- PERRL, EOMI, anicteric ENT- oropharynx clear Neck- supple, no JVD, no adenopathy, no thyromegaly; carotids +2/2, no bruits appreciated Lungs- clear to auscultation bilaterally, no rales/wheezes Heart- normal rate, regular rhythm; no murmur, no gallop, no rub appreciated Abdomen- normal bowel sounds, nondistended, soft, nontender, no masses or hepatosplenomegaly Extremities- no pretibial edema, no calf tenderness; peripheral pulses intact Neuro- alert, oriented x 3; CN 2-12 grossly intact; motor 5/5 bilaterally;sensation 100% on all extremities; no other gross focal neurologic deficits Skin- warm & dry Results & Data ([facility]) Vital Signs (Past 12 Hours) Vital Signs Temp Pulse Resp BP Pulse Ox 09/28/19 06:51 36.9 C 57 L 16 105/50 L 95 (1) Pancreatitis Acute pancreatitis complication: unspecified Chronicity: acute Pancreatitis type: unspecified pancreatitis type Qualified Code(s): K85.90 - Acute pancreatitis without necrosis or infection, unspecified
--- NOTE | 2019-09-28 17:45 | Electrocardiogram Report ---
Test Reason : Blood Pressure : / mmHG Vent. Rate : 058 BPM Atrial Rate : 058 BPM P-R Int : 170 ms QRS Dur : 104 ms QT Int : 400 ms P-R-T Axes : 052 -32 050 degrees QTc Int : 392 ms Sinus bradycardia Left axis deviation Abnormal ECG When compared with ECG of 23-SEP-2011 11:11, No significant change was found Confirmed by Thor Rogers ([id number]) on 09/28/2019 5:45:16 PM Referred By: REFERRED SELF Confirmed By:Ryan Rogers
[2019-09-29] MEDS: HYDROmorphone INJ 0.5 MG/0.5 ML SYR IV PRN ×2 (01:00→05:26)
[2019-09-29] MEDS: LACTATED RINGER'S 1,000 ML IV SCH ×2 (05:19→10:29)
[2019-09-29] MEDS: ACETAMINOPHEN 1,000 MG/100 ML VIAL IV PRN (07:35)
[2019-09-29] MEDS: INSULIN ASPART 100 UNITS/ML 3 ML PEN SC SCH ×2 (08:48→13:08)
--- NOTE | 2019-09-29 08:48 | Pharmacy Report ---
Pharmacy Glycemic Short Note 2 - Date of Service September 29, 2019 - Glycemic Short ASSESSMENT: 09/29 * Patient received total of 33 units of insulin yesterday, of which 16 were basal insulin * Fasting BSG elevated this morning at 212 mg/dL - will continue with current basal for now but may need to titrate dose tomorrow if still elevated * Diet resumed yesterday with lunch - BSGs trending up therefore will tighten CF/CR this morning * Per GI notes plan to continue to advance diet and likely discharge for outpatient MRCP 09/28 * 63 year old male with PMHx significant for hld, type 1 diabetes, recurrent pancreatitis. Admitted to hospital with possible pancreatitis. * Patient had been NPO this morning for GI workup - provider had ordered 10 units of Lantus * Patient follows [facility] clinic in [place] for diabetes. Notes state type 1 diabetic. Patient reports diagnosed however later in life in his 40s. Unclear if type 1 vs. 2 mix diabetic. * Diet resumed at lunch time - did order additional 6 units of basal insulin to make up full home basal dose and also started novolog PLAN FOR INPATIENT GLYCEMIC CONTROL: * Basal insulin - continue home dose * Lantus 16 units daily * Bolus insulin - tighten * NovoLog per scale ACHS or Q6hrs while NPO * Goal Range: Low 100 mg/dL - High 140 mg/dL * Correction Factor: 25 mg/dL/unit * Nutritional / Prandial insulin per carb ratio of 1 unit per 8 grams CHO consumed * Please note that the plan above was derived based on current level of insulin resistance and hospital stress. These recommendations are appropriate for inpatient admission only. Plan of care upon discharge will need to be reassessed to avoid potential outpatient hypo/hyperglycemia. Thank you. PLAN FOR DISCHARGE: * A1c=7.9% * Patient follows [facility] clinic for diabetes - would defer glycemic management to them
[2019-09-29] MEDS ORDERED: INSULIN GLARGINE SOLOSTAR 100 UNITS/ML 3 ML PEN SC SCH (09:00)
--- NOTE | 2019-09-29 12:02 | Gastroenterology Progress Note ---
Date of Service September 29, 2019 Assessment & Plan (1) Pancreatitis: Acute on chronic pancreatitis. No obvious etiology (no alcohol, no hx of prior increased alcohol, not a smoker, no new medications). IV hydration. Begin po clear liquids. Tolerated for lunch, will advance to low fat regular consistency and if able to tolerate then may be discharged later today. Plan for OP MRCP and EUS/ERCP by Dr. Garcia. I have placed the OP orders (in [facility]). Dr. Solano has spoken with Dr. garcia about this pt. Our office will call the pt to arrange. He was also given our phone number to call us. Subjective Mr. Rigoberto Bragg is a 63 yr old male admitted on 09/27 with symptoms and imaging suggestive of chronic pancreatitis with pancreatic duct stones without signs of cysts or necrosis. Pain is resolved since early yesterday. Able to tolerate low-fat regular consistency food for supper and breakfast. Patient requesting discharge. Review of Systems Review of Systems: ROS: Gen: Denies weakness, fevers, weight loss Eyes: No eye redness, or pain, no recent vision changes Resp: No SOB, no cough Cardio: No palpitations/irregular beats, no chest pain GI: See HPI, otherwise (-) : Denies pain on urination Skin: No jaundice, itching or new rashes Physical Exam Constitutional: WD/WN, vitals as above Eyes: PERRL, conjunctivae normal, anicteric sclerae ENMT: external ear and nose normal, oropharynx normal Neck: trachea midline, no thyromegaly Respiratory: normal respiratory effort, lungs clear to auscultation Cardiovascular: RRR, no murmur, no edema Gastrointestinal (Abdomen): Inspection/Auscultation: normal bowel sounds Percussion/Palpation: abdomen soft; abdomen nontender Skin: no rashes, warm and dry no jaundice Neurologic: PERRL, EOMI, accommodation nl, no face palsy, no dysarthria Psychiatric: A+Ox3, euthymic affect Lymphatic: no cervical or axillary lymphadenopathy Results & Data Vital Signs (Past 12 Hours) Vital Signs Temp Pulse Resp BP Pulse Ox 09/29/19 07:00 36.7 C 59 L 20 151/80 H 97 (1) Pancreatitis Acute pancreatitis complication: unspecified Chronicity: acute Pancreatitis type: unspecified pancreatitis type Qualified Code(s): K85.90 - Acute pancreatitis without necrosis or infection, unspecified
--- NOTE | 2019-09-30 18:15 | Hospitalist Progress Note ---
Date of Service September 30, 2019 Assessment & Plan (1) Pancreatitis: Pt is 63 y/o M with PMH recurrent pancreatitis, DM I, dyslipidemia presented to ER with c/o epigastric pain x 5 days. Denies fever/chills, N/V/D Lipase level 97 CT abdomen and pelvis: IMPRESSION: 1. The pancreas is atrophic and there are numerous parenchymal calcifications. Additionally, there is mild peripancreatic inflammation. Correlate clinically and with serum lipase levels for evidence of acute on chronic pancreatitis. 2. There are large stones within the main pancreatic duct. Large stones are also seen within the pancreatic duct in the region of the pancreatic head, possibly within the accessory duct of a pancreas divisum. These ductal stones cause upstream dilatation of the main pancreatic duct which measures up to 9 mm in diameter. GI consultation is advised and ERCP may provide further information. 3. Status post cholecystectomy. 4. Additional findings as above. Given vigorous IV fluids Significantly improved GI consulted, recommendation: Plan for outpatient MRCP and EUS/ERCP by Dr. Garcia Diet advance to solid diet, tolerated well Follow-up as an outpatient closely with GI (2) Diabetes type I: A1c: 7.9 in 06/2019 -Monitor BSGs -Continue Basal bolus insulin (3) Abnormal CT of the abdomen: Kidneys: The contrast enhanced kidneys demonstrate mild cortical atrophy and are without hydronephrosis. The kidneys enhance symmetrically. Small bilateral renal cysts measure up to 1.3 cm. Abdominal vasculature: The abdominal aorta is normal in course and caliber noting mild atherosclerotic calcification. Pelvic viscera: The prostate gland is mildly enlarged and heterogeneous noting median lobe hypertrophy. The bladder wall appears mildly thickened and trabeculated indicating chronic outlet obstruction. There is a small fat- containing right inguinal hernia. Further evaluation management as an outpatient Discharge to home Follow-up with PCP in 1 week Follow-up with the GI clinic as scheduled Subjective Delayed entry date of service 09/29/2019 Seen resting in bed, comfortable, not in distress, in good spirits No recurrence of abdominal pain,no nausea, no shortness of breath No fever or chills States he is ready and would like to be discharged Review of Systems Review of Systems: All systems reviewed & are unremarkable except as noted in HPI & below Physical Exam Physical Exam: General- oriented x 3, not in distress, speaks in sentences with no effort or accessory muscle use Eyes- anicteric Neck- no JVD Lungs- clear breath sounds bilaterally, no rales/wheezes Heart- normal rate, regular rhythm; no murmurs Abdomen- normal bowel sounds, nondistended, soft, nontender Extremities- no pretibial edema, no calf tenderness Neuro- alert, oriented x 3; no gross focal neurologic deficits Skin- warm & dry Results & Data ([facility]) Laboratory Results All noted and reviewed (1) Pancreatitis Acute pancreatitis complication: unspecified Chronicity: acute Pancreatitis type: unspecified pancreatitis type Qualified Code(s): K85.90 - Acute pancreatitis without necrosis or infection, unspecified
--- NOTE | 2019-09-30 18:23 | Discharge Summary ---
Date of Service September 30, 2019 Admission HPI Per Admitting Provider Pt is 63 y/o M with PMH recurrent pancreatitis, DM I, dyslipidemia presented to ER with c/o epigastric pain x 5 days. Reports epigastric pain radiates to back. Tried decreasing oral intake and then tried to slowly resume with worsening symptoms. Denies nausea or vomiting. Reports having normal BM's. Denies ETOH use. Denies fever/chills, diaphoresis, PILLAI, dizziness, syncope, vision changes, neck pain, CP, SOB, orthopnea, palpitations, cough, sore throat, choking, otalgia, rhinorrhea, paresthesias, weakness, extremity weakness, extremity edema, rashes, urinary symptoms. Admission Exam Per Admitting Provider General: no acute distress, WDWN Head: normocephalic, atraumatic Eyes: PERRL, EOM's intact, conjunctiva non-injected, anicteric ENT: normal inspection external ears, nose, mucous membranes moist Neck: supple, trachea midline Lungs: clear, no respiratory distress, no wheezing/rhonchi/rales CV: RRR, no murmur, no pretibial edema Abd: normal BS, soft, +tenderness to palpation epigastric without guarding Ext: no cyanosis, no calf tenderness Neuro: A&O x 3, no focal deficits noted, normal affect Skin: warm, dry Principal Diagnosis Acute pancreatitis Discharge Exam General- oriented x 3, not in distress, speaks in sentences with no effort or accessory muscle use Head- atraumatic Eyes- PERRL, EOMI, anicteric ENT- oropharynx clear Neck- supple, no JVD, no adenopathy, no thyromegaly; carotids +2/2, no bruits appreciated Lungs- clear to auscultation bilaterally, no rales/wheezes Heart- normal rate, regular rhythm; no murmur, no gallop, no rub appreciated Abdomen- normal bowel sounds, nondistended, soft, nontender, no masses or hepatosplenomegaly Extremities- no pretibial edema, no calf tenderness; peripheral pulses intact Neuro- alert, oriented x 3; CN 2-12 grossly intact; motor 5/5 bilaterally;sensation 100% on all extremities; no other gross focal neurologic deficits Skin- warm & dry Discharge Data Allergies Allergy/AdvReac Type Severity Reaction Status Date / Time aspirin Allergy Unknown Verified 09/27/19 15:50 Consultations 09/27/19 16:30 Consult Gastroenterology Stat 09/27/19 16:40 ED Decision to Admit Stat 09/27/19 17:52 Consult Gastroenterology Routine Ordered Studies 09/27/19 14:16 CT abd pelvis IV con only Stat CT SCAN OF THE ABDOMEN AND PELVIS WITH IV CONTRAST CLINICAL HISTORY: Epigastric abdominal pain. COMPARISON STUDY: No priors. TECHNIQUE: Following the IV administration of 89 cc of Optiray 320, CT scan of the abdomen and pelvis is performed from the lung bases to the proximal femora. Images are reviewed in the axial, sagittal, and coronal planes. IV contrast was administered without complication. A dose lowering technique was utilized adhering to the principles of ALARA. CT DOSE: 809.37 mGycm FINDINGS: Lung bases: The heart is normal in size and without pericardial effusion. The lung bases are clear noting dependent atelectasis. There is a small hiatal hernia. Liver: The contrast-enhanced liver is normal in size, contour, and attenuation. There is no intrahepatic biliary ductal dilatation. The hepatic veins and portal veins are patent. Gallbladder: Surgically absent noting clips in the gallbladder fossa. Spleen: Normal in size and attenuation. Pancreas: The pancreas is atrophic. Numerous parenchymal calcifications suggest chronic pancreatitis. There are large stones within the main pancreatic duct (image #139). Large stones are also present the hepatic duct in the pancreatic head region seen on image #152, possibly within the accessory duct of a pancreas divisum. This causes upstream dilatation of the pancreatic duct which measures up to 9 mm in diameter. There is mild peripancreatic stranding. The remaining parenchymal tissue enhances homogeneously. The splenic vein is patent. Adrenal glands: Unremarkable. Kidneys: The contrast enhanced kidneys demonstrate mild cortical atrophy and are without hydronephrosis. The kidneys enhance symmetrically. Small bilateral renal cysts measure up to 1.3 cm. Abdominal vasculature: The abdominal aorta is normal in course and caliber noting mild atherosclerotic calcification. Bowel: There are scattered colonic diverticula without CT evidence of acute diverticulitis. No bowel obstruction is seen. Fecal retention is noted in the colon. The appendix is well-visualized and normal. Peritoneum: There is no intraperitoneal free air or abdominal ascites. There is a small fat-containing umbilical hernia. Lymphadenopathy: None. Pelvic viscera: The prostate gland is mildly enlarged and heterogeneous noting median lobe hypertrophy. The bladder wall appears mildly thickened and trabe culated indicating chronic outlet obstruction. There is a small fat-containing right inguinal hernia. Skeletal structures: No lytic or blastic lesions are seen. IMPRESSION: 1. The pancreas is atrophic and there are numerous parenchymal calcifications. Additionally, there is mild peripancreatic inflammation. Correlate clinically and with serum lipase levels for evidence of acute on chronic pancreatitis. 2. There are large stones within the main pancreatic duct. Large stones are also seen within the pancreatic duct in the region of the pancreatic head, possibly within the accessory duct of a pancreas divisum. These ductal stones cause upstream dilatation of the main pancreatic duct which measures up to 9 mm in diameter. GI consultation is advised and ERCP may provide further information. 3. Status post cholecystectomy. 4. Additional findings as above. Hospital Course (1) Pancreatitis: Pt is 63 y/o M with PMH recurrent pancreatitis, DM I, dyslipidemia presented to ER with c/o epigastric pain x 5 days. Denies fever/chills, N/V/D Lipase level 97 CT abdomen and pelvis: IMPRESSION: 1. The pancreas is atrophic and there are numerous parenchymal calcifications. Additionally, there is mild peripancreatic inflammation. Correlate clinically and with serum lipase levels for evidence of acute on chronic pancreatitis. 2. There are large stones within the main pancreatic duct. Large stones are also seen within the pancreatic duct in the region of the pancreatic head, possibly within the accessory duct of a pancreas divisum. These ductal stones cause upstream dilatation of the main pancreatic duct which measures up to 9 mm in diameter. GI consultation is advised and ERCP may provide further information. 3. Status post cholecystectomy. 4. Additional findings as above. Given vigorous IV fluids Symptoms significantly improved GI consulted- ALEXANDRE Olivares=- recommendation: Plan for outpatient MRCP and EUS/ERCP by Dr. Garcia Diet advance to solid diet, tolerated well Follow-up as an outpatient closely with GI (2) Diabetes type I: A1c: 7.9 in 06/2019 -Monitor BSGs -Continue Basal bolus insulin (3) Abnormal CT of the abdomen: (full report in procedure section above) Kidneys: The contrast enhanced kidneys demonstrate mild cortical atrophy and are without hydronephrosis. The kidneys enhance symmetrically. Small bilateral renal cysts measure up to 1.3 cm. Abdominal vasculature: The abdominal aorta is normal in course and caliber noting mild atherosclerotic calcification. Pelvic viscera: The prostate gland is mildly enlarged and heterogeneous noting median lobe hypertrophy. The bladder wall appears mildly thickened and trabeculated indicating chronic outlet obstruction. There is a small fat- containing right inguinal hernia. Further evaluation management as an outpatient Discharge to home Follow-up with PCP in 1 week Follow-up with the GI clinic as scheduled Total Time Total Time Spent Total Time Spent (In Minutes): 35 minutes Discharge Plan Discharge Items Patient Disposition: Home - Self-Care Reason For Visit: PANCREATITIS Discharge Diagnosis: ACUTE PANCREATITIS Activity: Resume your previous activity Lifting: Gradually increase as tolerated Exercise/Sports: Gradually increase as tolerated Driving/Machine Use: NO DRIVING IF YOU ARE HAVING PAIN Non-emergency contact: Primary Care Provider and Location Man Call non-emergency contact if: you have any medication questions Follow-up/Referrals: Live Argueta MD [Primary Care Provider] - 10/03/19 11:05 am Diet: Carb Count or DM1 and Heart Healthy Addtl Attending Provider Instructions: PLEASE RETURN TO THE ER IMMEDIATELY IF WITH RECURRENCE OR WORSENING OF SYMPTOMS, FEVER, NAUSEA/VOMITING. PLEASE DRINK PLENTY OF FLUIDS AND AVOID BEING DEHYDRATED. AVOID FATTY, GREASY FOOD. FOLLOW UP WITH PRIMARY CARE PHYSICIAN NOTED ABOVE. FOLLOW UP WITH GASTROENTEROLOGY CLINIC SCHEDULED. THEIR CLINIC WILL BE CALLING YOU FOR THE APPOINTMENT. Pending Studies at Discharge: Yes Studies:: IMAGING STUDY OF THE PANCREAS CALLED MRCP Stand-Alone Forms: Call Back Authorization, [facility], Smoking Cessation Medications and DC Order Prescriptions: Continued fluticasone propionate [Flonase Allergy Relief] 50 mcg/actuation [place],Suspension 2 spray INTRANASAL DAILY PRN (Reason: Nasal Congestion) RF: 0 insulin lispro [Humalog KwikPen Insulin] 100 unit/mL insulin pen 6 unit SUBCUT BIDM RF: 0 insulin lispro [Humalog KwikPen Insulin] 100 unit/mL insulin pen 8 unit SUBCUT DAILY RF: 0 Lantus Solostar U-100 Insulin 100 unit/mL (3 mL) insulin pen 16 unit SUBCUT DAILY RF: 0 aspirin [Aspir-Low] 81 mg Tablet,Delayed Release (Dr/Ec) 81 mg PO DAILY RF: 0 fexofenadine [Tessa Allergy] 180 mg Tablet 180 mg PO DAILY PRN (Reason: Congestion) RF: 0 Discharge Orders: Discharge Order (Routine); Ordered 01/31/20 Ordered By: Adilson Camejo/Other Patient Handouts: Pancreatitis, Pancreatitis Acute Dc, Pancreatitis Chronic Dc Admission Data Admit Date/Time: 09/27/19 16:54 Attending Provider: Adilson Eckert Admit Provider: Denzel Higuera Primary Care Provider: Live Argueta Other Providers: Li Rosa ; Denzel Higuera ; Eduin Solano Other Interventions: Discharge Summary Assessment (RN) Last Done: 09/29/19 12:49 DC Date/Time DO NOT enter until pt leaves facility: 09/29/19 13:31
== END 2019-09-29 13:31 | disposition home or self-care (01) | DRG 440 ==
LOC: ED 14:04 → SUATTDRO 16:54 → 4W 16:54